=== PATIENT | female | born 1940 | race Caucasian/White ===

== ENCOUNTER 2019-04-05 07:53 | Day surgery (SDC) | payer MEDICARE, OTHER ==
[2019-04-05] MEDS ORDERED: LIDOCAINE 2% MDV (20MG/ML) 20ML VIAL IV ONE (07:54)
[2019-04-05] MEDS ORDERED: PROPOFOL 10 MG/ML VIAL IV ONE (07:54)
--- NOTE | 2019-04-06 10:52 | Operative Note ---
OPERATION: COLONOSCOPY with random biopsy. PREOPERATIVE DIAGNOSIS: Chronic unexplained diarrhea. POSTOPERATIVE DIAGNOSIS: Normal exam, rule out microscopic colitis. PROCEDURE: After informed consent was obtained from the patient, she was placed in the left lateral decubitus position in the endoscopy suite, sedated and monitored by the department of anesthesia. Digital rectal exam was unremarkable. A well-lubricated [id number] colonoscope was inserted into the rectum and advanced to the cecum. Preparation quality was excellent. The cecum, cecal bulb, ileocecal valve, appendiceal orifice, terminal ileum, ascending colon, transverse colon, descending colon, sigmoid colon, and rectum were inspected and were free of inflammatory changes, mass lesions, or polyps. Forward and J-turn views of the rectum and anorectum were unremarkable. It should be noted that random biopsies were obtained throughout the length of the colon. The rectal ampulla deflated, and the endoscope was removed. RECOMMENDATIONS: We will await results of tissue histology before further recommendations are made. As always, thank you for allowing me to participate in the healthcare of your patients. ALONDRA
== END 2019-04-05 09:25 | disposition home or self-care (01) ==
LOC: HOP 07:53
PROVIDERS: ATTEND Internal Medicine Gastroenterology
DX: K58.0 Irritable bowel syndrome with diarrhea (principal); R19.7 Diarrhea, unspecified; Z87.891 Personal history of nicotine dependence; Z86.73 Personal history of transient ischemic attack (TIA), and cerebral infarction without residual deficits; E78.00 Pure hypercholesterolemia, unspecified; M81.0 Age-related osteoporosis without current pathological fracture